=== PATIENT | male | born 1965 | race Caucasian/White ===

== ENCOUNTER 2025-05-05 12:05 | Emergency (ER) | payer OTHER ==
[~2025-05-05] VITALS: Ht 170.2 cm; Wt 102.1 kg
[2025-05-05 12:05] VITALS: BP 149/76; PULSE 68; RESP 18; TEMP 97.9; O2SAT 94
[2025-05-05 13:00] VITALS: BP 146/78; PULSE 65; RESP 18; O2SAT 97
[2025-05-05 13:53] VITALS: BP 135/74; PULSE 67; RESP 18; O2SAT 97
== END 2025-05-05 13:57 | disposition home or self-care (01) ==
LOC: ER 12:05
DX: S39.012A Strain of muscle, fascia and tendon of lower back, initial encounter (principal); S00.01XA Abrasion of scalp, initial encounter; I10 Essential (primary) hypertension; W10.9XXA Fall (on) (from) unspecified stairs and steps, initial encounter; Y93.89 Activity, other specified; Y92.89 Other specified places as the place of occurrence of the external cause; Y99.8 Other external cause status
CPT/HCPCS: 70450; 72125; 72131; 72192; 99284